=== PATIENT | female | born 2000 | race Caucasian/White ===

== ENCOUNTER 2020-01-23 14:24 | Emergency (ER) | payer OTHER, SELFPAY ==
--- NOTE | ~2020-01-23 | CT_ITS ---
EXAMINATION: CT abdomen pelvis w con DATE: 01/23/2020 15:41 INDICATION: Generalized abdominal pain. Nausea and vomiting. TECHNIQUE: Computed tomography (CT) of the abdomen and pelvis was performed with 100 mL Omnipaque 350 intravenous contrast. Automated exposure control and iterative reconstruction technique were employe d. The dose-length product was 189.92 mGy-cm. COMPARISON: None. FINDINGS: The visualized portions of the lung bases are clear without pneumonia or pleural effusion. The heart size is normal. No pericardial effusion. Pectus excavatum is noted. The liver, gallbladder, spleen, pancreas, adrenal glands, and kidneys are normal. There are no dilated loops of bowel. There is a moderate volume of stool in the colon. The appendix is not visualized. There is wall thickening of the descending and sigmoid colon. There are no pathologically enlarged lymph nodes. There is no f ree intraperitoneal fluid. IMPRESSION: 1. Mild wall thickening of the descending and sigmoid colon, consistent with colitis. Reviewed, dictated and finalized at location A. IMPRESSION: 1. Mild wall thickening of the descending and sigmoid colon, consistent with co litis.
--- NOTE | 2020-01-23 14:32 | ED.ABDPAIN ---
HPI - Abdominal Pain General Chief Complaint: Abdominal Pain Stated Complaint: abd pain Time Seen by Provider: 01/23/20 14:27 History of Present Illness HPI narrative: Abdominal pain for the past 2 days. Severe since this morning. Generalized in location, but worst on the right. Feels like cramping. Worse with movmeent or eating. Associated with nausea. She has also felt mildly constipated. No fever, dysuria, flank pain. Related Data Allergies Allergy/AdvReac Type Severity Reaction Status Date / Time No Known Allergies Allergy Verified 01/23/20 14:47 Review of Systems Review of Systems: All systems reviewed & are unremarkable except as noted in HPI and below Constitutional: Constitutional: Denies fever(s) Cardiovascular: Cardiovascular: Denies chest pain Respiratory: Respiratory: Denies dyspnea Gastrointestinal: Gastrointestinal: Reports abdominal pain, Reports constipation and Reports nausea Genitourinary: Genitourinary: Denies hematuria, Denies nocturia, Denies dysuria and Denies flank pain Musculoskeletal: Musculoskeletal: Denies back pain Neurologic: Reports dizziness and Denies weakness Exam Const: General: healthy appearing, no acute distress and alert Orientation/consciousness: patient oriented x3 HENMT: Head: normal to inspection Neck: Neck: normal visual inspection and no lymphadenopathy Chest: Chest palpation & inspection: no tenderness Resp: Effort & Inspection: normal respiratory effort Auscultation: clear to auscultation bilaterally, no rales, no rhonchi and no wheezes Cardio: Jugular venous distension: no JVD Rate: regular rate Rhythm: regular rhythm Heart sounds: no murmurs GI: Inspection: non-distended GI Palp: Yes Soft to palpation, No Tenderness to palpation present (GI), No Guarding due to palpation present (GI) and No Rebound tenderness present Skin: General skin exam: normal color Neuro: General: patient oriented x3 and moves all extremities Speech: normal speech Extrem: General: no edema Psych: Appearance: well kempt Affect: Anxious affect present Course Vital Signs Vital signs: Vital Signs Temperature 36.7 C 01/23/20 14:44 Pulse Rate 118 H 01/23/20 14:44 Respiratory Rate 16 01/23/20 14:44 Blood Pressure 120/81 01/23/20 14:44 Pulse Oximetry 100 01/23/20 14:44 Temperature 36.7 C 01/23/20 14:44 Pulse Rate 118 H 01/23/20 14:44 Respiratory Rate 16 01/23/20 14:44 Blood Pressure 120/81 01/23/20 14:44 Pulse Oximetry 100 01/23/20 14:44 MDM - Abdominal Pain MDM Narrative Medical decision making narrative: Labs reassuring. CT shows nonspecific colitis. Will try a course of antibiotics. Informed her that if this does not resolve her symptoms or they reoccur she will likely need to see GI Lab Data Result diagrams: 01/23/20 15:00 01/23/20 15:00 Labs: Lab Results 01/23/20 01/23/20 01/23/20 Range/Units 15:00 15:00 15:00 WBC 8.2 (4.5-10.0) K/mm3 RBC 5.00 (4.2-5.4) M/mm3 Hgb 14.9 (12.0-15.0) g/dL Hct 44.2 (37.0-47.0) % MCV 88.4 (80-100) fl MCH 29.8 (26-34) pg MCHC 33.7 (32-36) g/dl RDW 12.2 (11.5-14.5) % Plt Count 193 (150-375) k/mm3 MPV 10.6 H (7.4-10.4) fl Immature Gran % (Auto) 0.2 (0-0.5) % Neut % (Auto) 84.8 H (45.5-73.1) % Lymph % (Auto) 9.2 L (18.3-44.2) % Coffey % (Auto) 5.3 (2.6-8.5) % Eos % (Auto) 0.1 (0-4.4) % Baso % (Auto) 0.4 (0.2-1.2) % Lymph # (Auto) 0.75 L (0.9-3.2) K/mm3 Coffey # (Auto) 0.4 (0.1-0.6) K/mm3 Eos # (Auto) 0.0 (0-0.3) K/mm3 Baso # (Auto) 0.0 (0.0-0.1) K/mm3 Abs Immat Gran (auto) 0.02 (0.00-0.031) K/mm3 Absolute Neuts (auto) 6.9 H (1.3-6.7) K/mm3 Absolute Nucleated RBC 0.0 (0.0-0.012) K/mm3 Nucleated RBC % 0.0 (0.0-0.2) % Sodium 136 (134-143) mmol/L Potassium 3.7 (3.4-5.0) mmol/L Chloride 102 (98-107) mmol/L Carbon Dioxide 24 (22-30) mmol/L
[2020-01-23 14:44] VITALS: BP 120/81; PULSE 118; RESP 16; TEMP 36.7; O2SAT 100
[2020-01-23] MEDS: ONDANSETRON INJ 4 MG/2 ML VIAL IV PUSH (14:56)
[2020-01-23] MEDS: SODIUM CHLORIDE 0.9% IV 1,000 ML 999 ML IV CONT (14:58)
[2020-01-23 15:07] LABS: Basophils Percent Auto 0.4 % (0.2-1.2); Eosinophils Percent Auto 0.1 % (0-4.4); Hematocrit 44.2 % (37.0-47.0); Hemoglobin 14.9 g/dL (12.0-15.0); Immature Granulocyte Absolute 0.02 K/mm3 (0.00-0.031); Immature Granulocyte Percent A 0.2 % (0-0.5); Lymphocytes Absolute Auto 0.75 K/mm3 (0.9-3.2); Lymphocytes Percent Auto 9.2 % (18.3-44.2); Mean Corpuscular HGB Conc 33.7 g/dl (32-36); Mean Corpuscular Hemoglobin 29.8 pg (26-34); Mean Corpuscular Volume 88.4 fl (80-100); Mean Platelet Volume 10.6 fl (7.4-10.4); Monocytes Absolute Auto 0.4 K/mm3 (0.1-0.6); Monocytes Percent Auto 5.3 % (2.6-8.5); Neutrophils Absolute Auto 6.9 K/mm3 (1.3-6.7); Neutrophils Percent Auto 84.8 % (45.5-73.1); Platelet Count Result 193 k/mm3 (150-375); Red Cell Distribution Width 12.2 % (11.5-14.5); White Blood Count 8.2 K/mm3 (4.5-10.0)
[2020-01-23 15:13] LABS: Add Urine Microscopic? YES; Appearance Urine Clear (Clear); Bacteria Urine Trace /hpf; Bilirubin Urine Negative (Negative); Blood Urine Negative (Negative); Color Urine Yellow (Yellow); Glucose Urine UA Negative (Negative); Ketones Urine Trace mg/dL (Negative); Leukocyte Esterase Ur Negative LEU/UL (Negative); Mucus Urine Heavy /lpf; Nitrate Urine Negative (Negative); Protein Urine Negative (Negative); Specific Grav Ur 1.021 (1.001-1.035); Squamous Epithelial Cell Urine Few /hpf (Few); Urobilinogen Urine Negative mg/dL (<2.0); WBC Urine 0-3 /hpf
[2020-01-23 15:21] LABS: Alanine Aminotransferase 17 U/L (4-35); Albumin Level 4.6 g/dL (3.7-5.6); Alkaline Phosphatase 61 U/L (45-116); Anion Gap 10 mmol/L (8-16); Aspartate Amino Transferase 26 U/L (14-36); Bilirubin,Total 0.7 mg/dL (0.2-1.3); Blood Urea Nitrogen 18 mg/dL (8-21); Calcium 9.2 mg/dL (8.9-10.7); Carbon Dioxide 24 mmol/L (22-30); Chloride 102 mmol/L (98-107); Estimated CRCL calculation 79 ml/min; Estimated Glomerular Filt Rate > 60; Glucose 96 mg/dL (65-105); Lipase 36 U/L (23-300); Potassium 3.7 mmol/L (3.4-5.0); Sodium 136 mmol/L (134-143)
[2020-01-23] MEDS: CIPROFLOXACIN 500 MG TAB PO (16:35)
[2020-01-23] MEDS: DICYCLOMINE HCL INJ 20 MG/2 ML VIAL IM (16:35)
[2020-01-23] MEDS: metroNIDAZOLE 250 MG TABLET 500 MG PO (16:35)
== END 2020-01-23 17:09 | disposition home or self-care (01) ==
PROVIDERS: Emergency Provider Emergency Medicine; PCP Family Medicine
DX: K52.9 Noninfective gastroenteritis and colitis, unspecified (principal)
CPT/HCPCS: 36415; 74177; 80053; 81001; 81025; 83690; 85025; 96361; 96372; 96374; 96375; 99284; A9270; J0500; J2405; J3010; J7030; Q9967

== ENCOUNTER 2020-02-14 00:27 | Outpatient (CLI) | payer OTHER, SELFPAY ==
[2020-02-14 18:02] LABS: SARS-CoV-2 RNA PCR Negative
== END 2020-02-14 00:28 | disposition home or self-care (01) ==
LOC: ANHCOVIDDT 00:27
PROVIDERS: PCP Family Medicine; Visit Provider Internal Medicine Gastroenterology
DX: Z01.812 Encounter for preprocedural laboratory examination (principal); Z20.828 Contact with and (suspected) exposure to other viral communicable diseases
CPT/HCPCS: 87635; C9803; U0003

== ENCOUNTER 2020-02-14 10:56 | Outpatient (CLI) | payer OTHER, SELFPAY ==
[2020-02-14 12:13] LABS: Alanine Aminotransferase 15 U/L (4-35); Albumin Level 4.3 g/dL (3.7-5.6); Alkaline Phosphatase 48 U/L (45-116); Anion Gap 7 mmol/L (8-16); Aspartate Amino Transferase 23 U/L (14-36); Bilirubin,Total 0.3 mg/dL (0.2-1.3); Blood Urea Nitrogen 9 mg/dL (8-21); CRP 2.1 mg/dL (<1.0); Calcium 9.4 mg/dL (8.9-10.7); Carbon Dioxide 27 mmol/L (22-30); Chloride 104 mmol/L (98-107); Estimated Glomerular Filt Rate > 60; Glucose 99 mg/dL (65-105); Potassium 3.7 mmol/L (3.4-5.0); Sodium 138 mmol/L (134-143)
[2020-02-14 12:27] LABS: Erythrocyte Sedimentation Rate 16 mm/hr (0-20)
== END 2020-02-14 10:57 | disposition home or self-care (01) ==
LOC: ANHLAB 10:57
PROVIDERS: PCP Family Medicine; Visit Provider Internal Medicine Gastroenterology
DX: R10.9 Unspecified abdominal pain (principal); R19.7 Diarrhea, unspecified
CPT/HCPCS: 36415; 80053; 83605; 85652; 86140; 87045; 87046; 87177; 87209; 87324; 87427; 87635; 89055; C9803; U0003

== ENCOUNTER 2020-02-17 01:42 | Day surgery (SDC) | payer OTHER, SELFPAY ==
[2020-02-14 13:58] VITALS: BMI 17.0
--- NOTE | 2020-02-17 11:18 | P.PNAN_ITS ---
Anes - Initial Pre Proc Eval Procedure: Operation Date: 02/17/20 13:00 Proposed Procedures p Colonoscopy - Randall Walton MD Date/Time: 02/17/20 11:18 Surgeon: Randall Walton MD Pre Op Diagnosis: Colitis Patient Data Age: 19 Gender: F Height: 5 ft 6 in Weight: 48 kg Allergies Allergy/AdvReac Type Severity Reaction Status Date / Time No Known Allergies Allergy Verified 02/13/20 15:12 Home Medications Medication Instructions Recorded Confirmed Type norgestimate 0.25 mg-ethinyl 1 tablet PO DAILY 02/07/20 02/14/20 History estradiol 35 mcg tablet dicyclomine 20 mg tablet 20 mg PO TID PRN #90 tablet 02/12/20 02/14/20 Rx peg 3350-electrolytes 236 240 ml PO Q10M #4000 ml 02/13/20 Rx gram-22.74 gram-6.74 gram-5.86 gram solution Patient hx anesthesia problems: none Family hx anesthesia problems: none [facility] Past Medical History Medical History (Updated 02/13/20 @ 15:50 by LAKISHA OsorioN-C) Diarrhea Lower abdominal pain Social History Social History Smoking status: Never smoker Alcohol intake: never Substance use: never Substance use type: does not use Living arrangements: dorm student housing Spiritual care concerns: No Anes - Eval Final PreProcedure Day of Procedure 02/17/20 11:18 Patient weight: normal Heart: regular rate and rhythm Lungs: clear to auscultation Airway: Mallampati scale class II Neurological: alert and oriented Last oral intake: >/= 8 hours ASA classification: I Emergent: no Anesthetic plan: proceed Anesthesia type and monitoring: general GIVS and standard monitoring Informed Consent: The patient's anesthetic plan and its attendant risks and benefits were discussed with the patient/family/POA. Questions were solicited and answers provided to the satisfaction of the patient/family/POA.
[2020-02-17] MEDS: LACTATED RINGERS 1,000 ML 150 ML IV CONT (11:49)
[2020-02-17 11:51] VITALS: BP 110/70; PULSE 104; RESP 16; TEMP 36.3; O2SAT 100; BMI 17.3
--- NOTE | 2020-02-17 12:21 | WPDHPUPDATE1 ---
History and Physical Update Update Date/Time: 02/17/20 12:21 History and Physical has been reviewed, including an updated exam of the patient. There are NO changes in the patient's condition. Risks, benefits, and alternatives have been discussed and questions answered. Patient agrees to proceed with procedure.
[2020-02-17 12:24] VITALS: BP 98/60; PULSE 95; RESP 16; O2SAT 100
[2020-02-17 12:34] VITALS: BP 96/51; PULSE 96; RESP 21; O2SAT 100
[2020-02-17 12:44] VITALS: BP 94/71; PULSE 77; RESP 16; O2SAT 100
== END 2020-02-17 13:00 | disposition home or self-care (01) ==
PROVIDERS: PCP Family Medicine; Visit Provider Internal Medicine Gastroenterology
PROC: 0DJD8ZZ Inspection of Lower Intestinal Tract, Via Natural or Artificial Opening Endoscopic (ICD-10-PCS; CPT 45378; principal; 2020-02-17 13:00)
DX: K52.9 Noninfective gastroenteritis and colitis, unspecified (principal); R10.9 Unspecified abdominal pain; K62.89 Other specified diseases of anus and rectum; R93.3 Abnormal findings on diagnostic imaging of other parts of digestive tract
CPT/HCPCS: 45380; 88305; J2704; J7120

== ENCOUNTER 2020-07-30 11:43 | Outpatient (CLI) | payer OTHER, SELFPAY ==
[2020-07-30 12:18] LABS: Hematocrit 45.9 % (37.0-47.0); Hemoglobin 15.2 g/dL (12.0-15.0); Mean Corpuscular HGB Conc 33.1 g/dl (32-36); Mean Corpuscular Hemoglobin 30.2 pg (26-34); Mean Corpuscular Volume 91.1 fl (80-100); Platelet Count Result 231 k/mm3 (150-375); Red Blood Count 5.04 M/mm3 (4.2-5.4); White Blood Count 4.7 K/mm3 (4.5-10.0)
[2020-07-30 12:34] LABS: Alanine Aminotransferase 14 U/L (4-35); Albumin Level 4.3 g/dL (3.7-5.6); Alkaline Phosphatase 44 U/L (45-116); Anion Gap 7 mmol/L (8-16); Aspartate Amino Transferase 26 U/L (14-36); Bilirubin,Total 0.6 mg/dL (0.2-1.3); Blood Urea Nitrogen 10 mg/dL (8-21); CRP < 0.5 mg/dL (<1.0); Calcium 9.4 mg/dL (8.9-10.7); Carbon Dioxide 28 mmol/L (22-30); Chloride 104 mmol/L (98-107); Estimated Glomerular Filt Rate > 60; Glucose 100 mg/dL (65-105); Sodium 139 mmol/L (134-143)
[2020-07-30 13:26] LABS: Erythrocyte Sedimentation Rate 8 mm/hr (0-20)
[2020-07-30 14:08] LABS: Hepatitis B Surface Antigen Negative (Negative)
[2020-07-30 14:13] LABS: HAV RESULT Negative (Negative); Hepatitis B Core IgM Result Negative (Negative)
[2020-07-30 14:25] LABS: Hepatitis C Virus Antibody Negative (Negative)
[2020-08-08 19:27] LABS: TPMT Activity 15
== END 2020-07-30 11:44 | disposition home or self-care (01) ==
LOC: ANHLAB 11:44
PROVIDERS: PCP Family Medicine; Visit Provider Nurse Practitioner Family
DX: K50.90 Crohn's disease, unspecified, without complications (principal)
CPT/HCPCS: 36415; 80053; 80074; 82657; 85027; 85652; 86140

== ENCOUNTER 2020-08-04 17:49 | Outpatient (CLI) | payer OTHER, SELFPAY ==
[2020-08-07 11:50] LABS: NIL 0.03 IU/mL; Quantiferon TB Plus, 1T Negative
[2020-08-07 11:53] LABS: TB2-NIL 0.01 IU/mL
== END 2020-08-04 17:50 | disposition home or self-care (01) ==
LOC: ANHLAB 17:50
PROVIDERS: PCP Family Medicine; Visit Provider Nurse Practitioner Family
DX: K50.90 Crohn's disease, unspecified, without complications (principal)
CPT/HCPCS: 36415; 86480; 87045; 87046; 87427

== ENCOUNTER → 2020-09-25 00:16 | Outpatient (CLI) | payer OTHER, SELFPAY ==
[2020-09-25 18:42] LABS: SARS-CoV-2 RNA PCR Negative
== END ==
PROVIDERS: PCP Family Medicine; Visit Provider Internal Medicine Gastroenterology
DX: Z01.812 Encounter for preprocedural laboratory examination (principal); Z20.822 Contact with and (suspected) exposure to COVID-19
CPT/HCPCS: C9803; U0003; U0005

== ENCOUNTER 2020-09-29 01:52 | Day surgery (SDC) | payer OTHER, SELFPAY ==
[2020-09-18 13:04] VITALS: BMI 17.8
[2020-09-29 06:36] VITALS: BP 121/80; PULSE 97; RESP 16; TEMP 36.9; O2SAT 98; BMI 17.8
[2020-09-29] MEDS: LACTATED RINGERS 1,000 ML 150 ML IV CONT (06:41)
--- NOTE | 2020-09-29 06:41 | WPDANESEPPF ---
Anes - Initial Pre Proc Eval Procedure: Operation Date: 09/29/20 07:30 Proposed Procedures p Colonoscopy - Randall Walton MD Date/Time: 09/29/20 06:41 Surgeon: Randall Walton MD Pre Op Diagnosis: Left Colitis Without Complications Patient Data Age: 19 Gender: F Height: 1.68 m Weight: 50 kg Last Vital Signs Temp 36.9 C 09/29/20 06:36 Pulse 97 09/29/20 06:36 Resp 16 09/29/20 06:36 BP 121/80 09/29/20 06:36 Pulse Ox 98 09/29/20 06:36 Allergies Allergy/AdvReac Type Severity Reaction Status Date / Time No Known Allergies Allergy Verified 09/29/20 06:33 Home Medications Medication Instructions Recorded Confirmed Type norgestimate 0.25 mg-ethinyl 1 tablet PO DAILY 02/07/20 09/29/20 History estradiol 35 mcg tablet dicyclomine 20 mg tablet 20 mg PO TID PRN #90 tablet 02/12/20 09/29/20 Rx mesalamine 500 mg See Rx Instructions .ROUTE 07/13/20 09/29/20 Rx capsule,controlled release .COMPLEX #180 cap Patient hx anesthesia problems: none Family hx anesthesia problems: none PMF[facility] Past Medical History Medical History (Updated 07/29/20 @ 09:49 by LAKISHA OsorioN-C) Crohn's disease Diarrhea Left sided colitis Lower abdominal pain Social History Social History Smoking status: Never smoker Alcohol intake: never Drinks per week: 5 Substance use: never Substance use type: does not use Living arrangements: with roommate(s) Spiritual care concerns: No Anes - Eval Final PreProcedure Day of Procedure 09/29/20 06:41 Patient weight: thin Heart: regular rate and rhythm Lungs: clear to auscultation and normal air movement Airway: Mallampati scale class 1 Neurological: alert and oriented Last oral intake: >/= 8 hours ASA classification: II Emergent: no Anesthetic plan: proceed Anesthesia type and monitoring: general GIVS and standard monitoring Informed Consent: The patient's anesthetic plan and its attendant risks and benefits were discussed with the patient/family/POA. Questions were solicited and answers provided to the satisfaction of the patient/family/POA.
--- NOTE | 2020-09-29 07:29 | PM.HPGS ---
History of Present Illness History of Present Illness Consent: Risks, benefits, and alternatives have been discussed and questions answered. Patient agrees to proceed with procedure. Chief complaint: Left Colitis Without Complications Narrative: Susan Escobedo is a 19 year old female with colonoscopy 01/2020 showed mild left sided colitis (confirmed with biopsies) c/w Crohn's, right colon bx normal, normal ileum. She is now on pentasa tid, recent cbc and cmp normal. Review of Systems Constitutional: Constitutional: Denies headache(s) and Denies weakness Eyes: Eyes: Denies blurry vision ENT: Reports Normal hearing present, Denies headache(s) and Denies neck pain Cardiovascular: Cardiovascular: Denies chest pain and Denies dyspnea Respiratory: Respiratory: Denies dyspnea Gastrointestinal: Gastrointestinal: Reports no additional gastrointestinal complaints Genitourinary: Genitourinary: Denies dysuria Musculoskeletal: Musculoskeletal: Denies neck pain Integumentary/Breasts: Skin/Breast: Denies dry skin Neurologic: Reports Normal hearing present, Denies headache(s) and Denies weakness Psychiatric: Psychiatric: Denies anxiety Endocrine: Endocrine: Denies change in body appearance Hematologic/Lymphatic: Hematologic/Lymphatic: Denies easy bleeding Allergic/Immunologic: Allergic/Immunologic: Denies urticaria PMFSH Past Medical History Medical History (Updated 07/29/20 @ 09:49 by YADI Osorio) Crohn's disease Diarrhea Left sided colitis Lower abdominal pain Social History Social History Smoking status: Never smoker Alcohol intake: never Drinks per week: 5 Substance use: never Substance use type: does not use Living arrangements: with roommate(s) Spiritual care concerns: No Meds Home Medications and Allergies Home Medications Medication Instructions Recorded Confirmed Type norgestimate 0.25 mg-ethinyl 1 tablet PO DAILY 02/07/20 09/29/20 History estradiol 35 mcg tablet dicyclomine 20 mg tablet 20 mg PO TID PRN #90 tablet 02/12/20 09/29/20 Rx mesalamine 500 mg See Rx Instructions .ROUTE 07/13/20 09/29/20 Rx capsule,controlled release .COMPLEX #180 cap Allergies Allergy/AdvReac Type Severity Reaction Status Date / Time No Known Allergies Allergy Verified 09/29/20 06:33 Vital Signs Vital Signs - 24 hr 09/29/20 06:36 Temperature 98.4 F Pulse Rate 97 Respiratory Rate 16 Blood Pressure 121/80 Pulse Oximetry 98 Exam Const: General: comfortable and no acute distress HENMT: General nose exam: Normal nares present Eyes: General: appearance normal, both eyes and all related structures Neck: Neck: no JVD Resp: Auscultation: clear to auscultation bilaterally Cardio: Rate: regular rate Rhythm: regular rhythm GI: Inspection: non-distended GI Palp: Yes Soft to palpation Skin: General skin exam: normal color Neuro: General: gait normal Speech: normal speech Extrem: General: normal to inspection Psych: Mental Status: mental status grossly normal Assessment and Plan Assessment and plan (1) Crohn's disease: Code(s): K50.90 - Crohn's disease, unspecified, without complications Status: Acute Assessment and Plan: colonoscopy to reassess (2) Left sided colitis: Code(s): K51.50 - Left sided colitis without complications Status: Acute
[2020-09-29 07:51] VITALS: BP 86/52; PULSE 83; RESP 19; O2SAT 98
[2020-09-29 08:01] VITALS: BP 90/56; PULSE 80; RESP 30; O2SAT 99
[2020-09-29 08:11] VITALS: BP 98/81; PULSE 83; RESP 31; O2SAT 100
== END 2020-09-29 08:24 | disposition home or self-care (01) ==
PROVIDERS: PCP Family Medicine; Visit Provider Internal Medicine Gastroenterology
PROC: 0DJD8ZZ Inspection of Lower Intestinal Tract, Via Natural or Artificial Opening Endoscopic (ICD-10-PCS; CPT 45378; principal; 2020-09-29 07:30)
DX: K51.50 Left sided colitis without complications (principal)
CPT/HCPCS: 45380; 88305; J2704; J7120

== ENCOUNTER 2021-04-02 09:52 | Outpatient (CLI) | payer OTHER, SELFPAY ==
[2021-04-02 10:27] LABS: Hematocrit 44.5 % (37.0-47.0); Hemoglobin 14.9 g/dL (12.0-15.0); Mean Corpuscular HGB Conc 33.5 g/dl (32-36); Mean Corpuscular Hemoglobin 30.3 pg (26-34); Mean Corpuscular Volume 90.6 fl (80-100); Mean Platelet Volume 10.2 fl (7.4-10.4); Platelet Count Result 227 k/mm3 (150-375); Red Blood Count 4.91 M/mm3 (4.2-5.4); Red Cell Distribution Width 11.8 % (11.5-14.5); White Blood Count 5.5 K/mm3 (4.5-10.0)
[2021-04-02 10:39] LABS: Alanine Aminotransferase 17 U/L (4-35); Albumin Level 4.7 g/dL (3.5-5.1); Alkaline Phosphatase 47 U/L (38-126); Anion Gap 7 mmol/L (8-16); Aspartate Amino Transferase 34 U/L (14-36); Bilirubin,Total 0.5 mg/dL (0.2-1.3); Blood Urea Nitrogen 12 mg/dL (7-17); CRP < 0.5 mg/dL (<1.0); Calcium 9.6 mg/dL (8.4-10.2); Carbon Dioxide 28 mmol/L (22-30); Chloride 104 mmol/L (98-107); Estimated Glomerular Filt Rate > 60; Glucose 85 mg/dL (65-110); Potassium 4.8 mmol/L (3.4-5.0); Sodium 139 mmol/L (137-145)
[2021-04-02 12:32] LABS: Erythrocyte Sedimentation Rate 5 mm/hr (0-20)
== END 2021-04-02 09:53 | disposition home or self-care (01) ==
LOC: ANHLAB 09:56
PROVIDERS: PCP Family Medicine; Referring Provider Nurse Practitioner Family; Visit Provider Internal Medicine Gastroenterology
DX: K51.50 Left sided colitis without complications (principal); R53.83 Other fatigue
CPT/HCPCS: 36415; 80053; 84443; 85027; 85652; 86140

== ENCOUNTER 2022-07-15 08:48 | Outpatient (CLI) | payer OTHER, SELFPAY ==
[2022-07-19 18:32] LABS: Gliadin AB, IgG 2.1 U/mL (<15.0); TTG IGA AB <1.0 U/mL (<15.0)
== END 2022-07-15 08:49 | disposition home or self-care (01) ==
PROVIDERS: PCP Family Medicine; Visit Provider Nurse Practitioner Family
DX: K50.90 Crohn's disease, unspecified, without complications (principal); R63.0 Anorexia; R63.6 Underweight
CPT/HCPCS: 36415; 83516; 84443; 86255

== ENCOUNTER 2022-10-17 13:30 | Emergency (ER) | payer OTHER, SELFPAY ==
[2022-10-17 13:38] VITALS: BP 102/79; PULSE 82; RESP 16; TEMP 36.8; O2SAT 100
--- NOTE | 2022-10-17 13:41 | ED.URI ---
HPI - URI/Sore Throat General Chief Complaint: Upper Respiratory Infection Stated Complaint: SINUS CONGESTION/PRESSURE/COUGH Source: patient and RN notes reviewed History of Present Illness HPI Narrative: 21 year presents urgent care complaining of cough, congestion, and runny nose. Patient reports pressure in face and head. Patient is also stating she has been sweating a lot. Patient states her cough is much worse at nighttime. Patient has been taking DayQuil at home with minimal relief. Denies any chest pain, shortness of breath vomiting, diarrhea or abdominal pain. Related Data Allergies Allergy/AdvReac Type Severity Reaction Status Date / Time No Known Allergies Allergy Verified 04/27/22 14:18 Review of Systems Review of Systems: Pertinent positives and pertinent negatives per HPI. [facility] Past Medical History Medical History (Updated 10/17/22 @ 13:42 by Nichole Richardson, PRODUCT SAFETY SPECIALIST) Crohn's disease Diarrhea Left sided colitis Lower abdominal pain Nausea and vomiting Social History Social History Smoking status: Never smoker Alcohol intake: never Drinks per week: 5 Substance use: never Substance use type: does not use Living arrangements: with roommate(s) Spiritual care concerns: No Comments At the time of my signature, I reviewed and agree with the nursing past medical, surgical, social, and family history. There is no relevant family history pertinent to the patient complaint. Exam Narrative: GENERAL: This is a well-nourished, well-developed patient, in no apparent distress. HEAD: normocephalic, atraumatic. EYES: Sclera clear/white. Vision is grossly intact. EARS: External ears normal, auditory canals clear and without drainage, TMs normal without perforation. Hearing grossly intact. NOSE: External nose normal with no obvious nasal discharge, nares without redness, no rhinorrhea. THROAT: Mucous membranes moist, posterior pharynx clear. NECK: Neck supple, non-tender without lymphadenopathy, masses or thyromegaly. CARDIOVASCULAR: Regular rate and rhythm without murmurs, gallops, or rubs. RESPIRATORY: Clear to auscultation. Breath sounds equal bilaterally. No wheezes, rales, or rhonchi. SKIN: warm, intact with no suspicious lesions or rash, good texture and turgor. NEURO: awake, alert, and oriented to person, place and time. There were no obvious focal neurologic abnormalities. Course Course Level of Care: Express Care Visit Vital Signs Vital signs: Vital Signs Temperature 98.3 F 10/17/22 13:38 Pulse Rate 82 10/17/22 13:38 Respiratory Rate 16 10/17/22 13:38 Blood Pressure 102/79 10/17/22 13:38 Pulse Oximetry 100 10/17/22 13:38 Temperature 98.3 F 10/17/22 13:38 Pulse Rate 82 10/17/22 13:38 Respiratory Rate 16 10/17/22 13:38 Blood Pressure 102/79 10/17/22 13:38 Pulse Oximetry 100 10/17/22 13:38 reviewed MDM - URI/Sore Throat MDM Narrative Medical decision making narrative: Take steroids as directed. May use the inhaler every 4-6 hours as needed for coughing. Increase fluids at home. Avoid any and all smoke. May use a humidifier in the bedroom. Increase your Vitamin C. Follow-up with personal physician in 2-5 days. Viral illness may last between 7-12days; antibiotic is NOT recommended at this time. Recommend antihistamine such as Benadryl at night time and Claritin/Zyrtec/Melissa during the day. Increase your Vitamin C intake. Use inhaler as needed for cough, wheezing, shortness of breath or chest tightness. Also, recommend symptomatic treatment includes: rest, fluids, increase humidity of the air at home with a humidifier in the bedroom. Recommend Acetaminophen or nonsteroidal anti-inflammatory agents(NSAIDs) as directed in the bottle to reduce fever and/pain/headache. Avoid smoking/second-hand smoke. Limit visits to areas with large crowds. Frequent hand washing or hand s
== END 2022-10-17 13:47 | disposition home or self-care (01) ==
PROVIDERS: Emergency Provider Nurse Practitioner Family; PCP Family Medicine
DX: J40 Bronchitis, not specified as acute or chronic (principal); J06.9 Acute upper respiratory infection, unspecified; K50.90 Crohn's disease, unspecified, without complications
CPT/HCPCS: 99213; G0463